=== PATIENT | male | born 1960 | race Caucasian/White ===

== ENCOUNTER 2022-06-28 09:32 | Emergency (ER) | payer SELFPAY ==
[~2022-06-28] VITALS: Ht 172.7 cm; Wt 74.8 kg
[2022-06-28] MEDS ORDERED: HYDR-4902 PO (11:44)
[2022-06-28] MEDS ORDERED: HYDROcodone-ACET 10/325MG TAB PO ONE (11:45)
[2022-06-28 13:22] VITALS: BP 126/67
[2022-06-28] MEDS ORDERED: CEPH-510 PO (14:15)
[2022-06-28] MEDS ORDERED: cefTRIAXone SOD 1,000 MG VL IM ONE (14:15)
[2022-06-28] MEDS ORDERED: TETANUS-DIPTH-ACEL PERTUSSIS 0.5ML SYR Tdap IM ONE (14:15)
[2022-06-28] MEDS ORDERED: DexAMETHasone SOD PHOS 10MG/1ML VIAL INJ ONE (16:55)
== END 2022-06-28 11:46 | disposition home or self-care (01) ==
LOC: ER 09:32
DX: S01.112A Laceration without foreign body of left eyelid and periocular area, initial encounter (principal); S52.502A Unspecified fracture of the lower end of left radius, initial encounter for closed fracture; W11.XXXA Fall on and from ladder, initial encounter; Y93.89 Activity, other specified; Y92.89 Other specified places as the place of occurrence of the external cause; Y99.8 Other external cause status; F12.10 Cannabis abuse, uncomplicated
CPT/HCPCS: 12002; 12013; 29125; 70450; 72125; 72192; 73030; 73090; 73110; J1100

== ENCOUNTER 2022-07-01 15:47 | Emergency (ER) | payer SELFPAY ==
[~2022-07-01] VITALS: Ht 172.7 cm; Wt 75.0 kg
[~2022-07-01 15:47] MED LIST: CEPH-510 PO; HYDR-4902 PO
[2022-07-01 20:15] VITALS: BP 159/99
== END 2022-07-01 20:17 | disposition home or self-care (01) ==
LOC: ER 15:47
DX: S52.502D Unspecified fracture of the lower end of left radius, subsequent encounter for closed fracture with routine healing (principal); Z79.899 Other long term (current) drug therapy; W11.XXXD Fall on and from ladder, subsequent encounter
CPT/HCPCS: 29125